=== PATIENT | male | born 1955 | race Caucasian/White ===

== ENCOUNTER 2017-07-15 02:02 | Emergency (ER) | payer OTHER ==
[~2017-07-15] VITALS: Ht 167.6 cm; Wt 100.0 kg
[2017-07-15 02:09] VITALS: BP 180/96
== END 2017-07-15 07:37 | disposition left against medical advice (07) ==
LOC: ER 02:02
DX: Z53.21 Procedure and treatment not carried out due to patient leaving prior to being seen by health care provider (principal)